=== PATIENT | male | born 1990 | race Caucasian/White ===

== ENCOUNTER 2017-03-30 12:12 | Emergency (ER) | payer SELFPAY ==
[2017-03-30 12:20] VITALS: TEMP 98.4
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
[2017-03-30 14:35] VITALS: BP 133/76; PULSE 76; RESP 16; O2SAT 98
== END 2017-03-30 14:34 | disposition home or self-care (01) ==
DX: M54.16 Radiculopathy, lumbar region (principal); F17.200 Nicotine dependence, unspecified, uncomplicated; V47.5XXA Car driver injured in collision with fixed or stationary object in traffic accident, initial encounter; Y92.410 Unspecified street and highway as the place of occurrence of the external cause; Y99.8 Other external cause status; Y93.89 Activity, other specified